=== PATIENT | male | born 1945 | race Caucasian/White ===

== ENCOUNTER 2016-09-10 07:43 | Emergency (ER) | payer BC, MEDICARE ==
[~2016-09-10] VITALS: Ht 208.3 cm; Wt 103.5 kg
[~2016-09-10 07:43] MED LIST: ADVA250A INH; ALBU17I INH; ALBU1AER INH; ASPI81TA82 PO; MAXZ25 PO; PRED50 PO; PROC90TA PO; SIMV20 PO; ZITH250T PO
[2016-09-10 07:51] VITALS: BP 150/84; PULSE 100; RESP 16; TEMP 98.1; O2SAT 94
[2016-09-10] MEDS ORDERED: ALBUAER3 INH (08:01)
[2016-09-10] MEDS ORDERED: ASPI81CH7 CHEW (08:01)
[2016-09-10] MEDS ORDERED: ADVA250A INH (08:01)
[2016-09-10] MEDS ORDERED: SIMV20TA PO (08:01)
[2016-09-10] MEDS ORDERED: LISI10TA3 PO (08:01)
[2016-09-10] MEDS ORDERED: NIFE1TAB PO (08:01)
[2016-09-10] MEDS ORDERED: HYDR25TA5 PO (08:01)
[2016-09-10 08:02] VITALS: RESP 16
[2016-09-10] MEDS ORDERED: KETOROLAC TROMETHAMINE 60 MG/2 ML (IM) VIAL IM ONE (08:30)
--- NOTE | 2016-09-10 08:50 | PD ---
HPI Chief Complaint: Back/ Neck Pain or Injury Time Seen by Provider: 08:13 Travel History International Travel<30 days: No Contact w/Intl Traveler<30days: No Traveled to known affect area: No History of Present Illness HPI 70-year-old male presents with left-sided back pain that is been present for the past couple weeks after he lifted multiple bags of groceries and twisted the wrong way. He states he has been using heating pad and anti-inflammatories and was doing better but it started to bother him again yesterday. He states this was after he started playing golf. He states that he is not having any incontinence, weakness, numbness, urinary symptoms, abdominal pain or other concurrent complaints. He denies taking blood thinner medications. Quality pain is sharp. Severity is moderate. Pain is worse with movement. He denies other modifying factors. PFSH Past Medical History Hx Anticoagulant Therapy: Yes (BABY ASA DAILY) Cardiovascular Problems: Yes (CHOL, HTN) High Cholesterol: Yes COPD: Yes Diabetes: No Diminished Hearing: No Hypertension: Yes Tetanus Vaccination: Unknown Past Surgical History Abdominal Surgery: Yes (HERNIA REPAIR) Cholecystectomy: Yes Social History Alcohol Use: Yes (COUPLE OF BEERS A DAY) Tobacco Use: No Substance Use: No Allergies-Medications (Allergen,Severity, Reaction): Coded Allergies: No Known Allergies (Verified , 09/10/16) Reported Meds & Prescriptions Reported Meds & Active Scripts Active Skelaxin (Metaxalone) 800 Mg Tab 800 Mg PO HS PRN Reported Aspirin Children's (Aspirin) 81 Mg Chew 81 Mg CHEW DAILY Advair Diskus Inh (Fluticasone-Salmeterol Inh) 250-50 Mcg/Blist Aer 1 Puff INH BID Rinse mouth after use. Proair Hfa 8.5 GM Inh (Albuterol Sulfate) 90 Mcg/Act Aer 1 Puff INH Q4H PRN 108 mcg/actuation Hydrochlorothiazide 25 Mg Tab 25 Mg PO DAILY Simvastatin 20 Mg Tab 20 Mg PO DAILY Lisinopril 10 Mg Tab 10 Mg PO DAILY Nifedipine ER 24 HR (Nifedipine) 90 Mg Tab 90 Mg PO DAILY Review of Systems Except as stated in HPI: all other systems reviewed are Neg Physical Exam Narrative GENERAL: Well-nourished, well-developed patient. SKIN: Warm and dry. HEAD: Normocephalic and atraumatic. EYES: No injection or drainage. ENT: No nasal drainage noted. NECK: Supple, trachea midline. CARDIOVASCULAR: Regular rate and rhythm RESPIRATORY: Breath sounds equal bilaterally. No accessory muscle use. GASTROINTESTINAL: Abdomen soft, non-tender, nondistended. EXTREMITIES: No edema. BACK: Nontender without obvious deformity in midline, no CVA tenderness, tender to left lateral lower back in lumbar area. NEUROLOGICAL: Awake and alert. Motor and sensory grossly within normal limits. Normal speech. Data Data Last Documented VS Vital Signs Date Time Temp Pulse Resp B/P Pulse Ox O2 Delivery O2 Flow Rate FiO2 09/10/16 10:43 82 16 112/72 93 09/10/16 07:51 98.1 Orders Spine, Lumbar - Ltd (Ap & Lat) (09/10/16 ) Ketorolac Inj (Toradol Inj) (09/10/16 08:30) MDM Medical Decision Making Medical Screen Exam Complete: Yes Emergency Medical Condition: Yes Medical Record Reviewed: Yes (pmh confirmed) Interpretation(s) Lumbar x-ray without acute fracture Differential Diagnosis Disc disease, strain, doubt fracture Narrative Course Patient agrees to Limited x-ray with anti-inflammatory injection. He understands if he develops red flag symptoms which I reviewed with him that he needs to emergently return here and either way he needs to follow with his primary care physician for further nonemergent testing as an outpatient. Patient denies any new complaints and states that they are feeling better. Patient happy with care, all questions answered. Patient knows that follow up is incumbent on them and to return to the emergency room immediately if new or worsening symptoms develop. Patient given strict return precautions, vitals reviewed and are normal, agrees to further workup as an outpatient. Diagnosis Primary Impression: Back pain Qualified Code: M54.5 - Acute left-sided low back pain without sciatica Patient Instructions: General Instructions Additional Instructions: return as needed, tylenol as needed, follow with primary tuesday Med/Other Pt SpecificInfo: Prescription(s) given Scripts Metaxalone (Skelaxin)800 Mg [id number] Mg PO HS PRN (PAIN SCALE 1 TO 10) #10 TAB Prov:Maggi Garcia MD 09/10/16 Disposition: 01 DISCHARGE HOME Condition: Stable Maggi Garcia MD Sep 10, 2016 08:50
--- NOTE | 2016-09-10 10:29 | RADHPO ---
EXAM DATE/TIME: 09/10/2016 09:49 [facility] COMPARISON: No previous studies available for comparison. INDICATIONS: Left lower back pain after twisting wrong. MEDICAL HISTORY: Hypertension. Hypercholesterolemia. Chronic obstructive pulmonary disease. SURGICAL HISTORY: Cholecystectomy. Hernia repair. ENCOUNTER: Initial ACUITY: 3 weeks PAIN SCORE: 9/10 LOCATION: Left lumbar spine FINDINGS: There is loss of disc space height at L4-5 and L5-S1 with moderate degenerative changes in the facets . There is good preservation of vertebral body heights. CONCLUSION: 1. Degenerative changes as described above. 2. Negative for an acute compression. Diallo Douglas MD FACR on September 10, 2016 at 10:13 Board Certified Radiologist. This report was verified electronically.
[2016-09-10] MEDS ORDERED: META800T81 PO ×2 (10:38→10:58)
[2016-09-10 10:43] VITALS: BP 112/72
== END 2016-09-10 11:09 | disposition home or self-care (01) ==
LOC: PHED 07:43
DX: M54.5 Low back pain (principal)
CPT/HCPCS: 72100; 96372; 99283; J1885

== ENCOUNTER 2017-05-01 10:41 | Emergency (ER) | payer MEDICARE ==
[~2017-05-01] VITALS: Ht 182.9 cm; Wt 97.2 kg
[~2017-05-01 10:41] MED LIST changes: -ALBU17I INH; -ALBU1AER INH; +ALBUAER3 INH; +ASPI81CH7 CHEW; -ASPI81TA82 PO; +HYDR25TA5 PO; +LISI10TA3 PO; -MAXZ25 PO; +META800T81 PO; +NIFE1TAB PO; -PRED50 PO; -PROC90TA PO; -SIMV20 PO; +SIMV20TA PO; -ZITH250T PO
[2017-05-01 10:54] VITALS: BP 138/69; PULSE 95; RESP 16; TEMP 98.3; O2SAT 96
[2017-05-01] MEDS ORDERED: ALBU0.08 NEB (11:10)
[2017-05-01] MEDS ORDERED: ALLO100T PO (11:10)
[2017-05-01] MEDS ORDERED: METF500T PO (11:10)
[2017-05-01] MEDS ORDERED: INDO50CA PO (11:10)
--- NOTE | 2017-05-01 11:36 | PD ---
HPI Chief Complaint: Lump, Cyst, Hernia Time Seen by Provider: 11:32 Travel History International Travel<30 days: No Contact w/Intl Traveler<30days: No Traveled to known affect area: No History of Present Illness HPI Patient presents with concerns of right testicular discomfort which is gotten worse since Tuesday. States he has a inguinal hernia. States he plays golf 3 times a week and normally does not give him any problems however on Tuesday he started to experience pain primarily later in the afternoon after ambulating throughout the day. Denies any change in urination or bowel. Denies any chest pain shortness of breath. Denies any nausea vomiting diarrhea or fever. PFSH Past Medical History Hx Anticoagulant Therapy: Yes (BABY ASA DAILY) Cardiovascular Problems: Yes (CHOL, HTN) High Cholesterol: Yes COPD: Yes Diabetes: Yes Patient Takes Glucophage: Yes Diminished Hearing: No Hypertension: Yes Medical other: Yes (GOUT, HERNIA) Triglycerides - High: Yes Tetanus Vaccination: > 5 Years Influenza Vaccination: Yes ?: Not Past Surgical History Abdominal Surgery: Yes (HERNIA REPAIR) Cholecystectomy: Yes Social History Alcohol Use: Yes (3-4 BEER) Tobacco Use: No Substance Use: No Allergies-Medications (Allergen,Severity, Reaction): Coded Allergies: No Known Allergies (Verified , 05/01/17) Reported Meds & Prescriptions Reported Meds & Active Scripts Active Reported Albuterol Neb (Albuterol Sulfate) 2.5 Mg/3 Ml Neb 2.5 Mg NEB Q4HR NEB While awake Indomethacin 50 Mg Cap 50 Mg PO TID Take with food, milk, or antacids to decrease stomach adverse effects. Allopurinol 100 Mg Tab 100 Mg PO DAILY Metformin (Metformin HCl) 500 Mg Tab 500 Mg PO BIDPC Aspirin Children's (Aspirin) 81 Mg Chew 81 Mg CHEW DAILY Advair Diskus Inh (Fluticasone-Salmeterol Inh) 250-50 Mcg/Blist Aer 1 Puff INH BID Rinse mouth after use. Proair Hfa 8.5 GM Inh (Albuterol Sulfate) 90 Mcg/Act Aer 1 Puff INH Q4H PRN 108 mcg/actuation Hydrochlorothiazide 25 Mg Tab 25 Mg PO DAILY Simvastatin 20 Mg Tab 20 Mg PO DAILY Lisinopril 10 Mg Tab 10 Mg PO DAILY Nifedipine ER 24 HR (Nifedipine) 90 Mg Tab 90 Mg PO DAILY Review of Systems General / Constitutional: No: Fever Eyes: No: Visual changes HENT: No: Headaches Cardiovascular: No: Chest Pain or Discomfort Respiratory: No: Shortness of Breath Gastrointestinal: No: Abdominal Pain Genitourinary: Positive: Other (testicular discomfort), No: Dysuria Musculoskeletal: No: Pain Skin: No Rash Neurologic: No: Weakness Psychiatric: No: Depression Endocrine: No: Polydipsia Hematologic/Lymphatic: No: Easy Bruising Physical Exam Narrative GENERAL: Well-nourished, well-developed patient. SKIN: Focused skin assessment warm/dry. HEAD: Normocephalic. EYES: No scleral icterus. No injection or drainage. NECK: Supple, trachea midline. No JVD or lymphadenopathy. CARDIOVASCULAR: Regular rate and rhythm without murmurs, gallops, or rubs. RESPIRATORY: Breath sounds equal bilaterally. No accessory muscle use. GASTROINTESTINAL: Abdomen soft, non-tender, nondistended. MUSCULOSKELETAL: No cyanosis, or edema. BACK: Nontender without obvious deformity. No CVA tenderness. Testicular exam: I really don't appreciate any significant inguinal hernias there does appear to be a significant hydrocele/varicocele about the right testicle measuring 10-12 centimeters in total. Is not erythematous or warm to touch Data Data Last Documented VS Vital Signs Date Time Temp Pulse Resp B/P (MAP) Pulse Ox O2 Delivery O2 Flow Rate FiO2 05/01/17 13:18 80 18 127/72 (90) 93 Room Air 05/01/17 10:54 98.3 Orders Orders Urinalysis - C+S If Indicated (05/01/17 11:14) Us Testicles W Doppler (05/01/17 ) Urine Culture (05/01/17 11:25) Labs Laboratory Tests Test 05/01/17 11:25 Urine Collection Type CLEAN CATCH Urine Color YELLOW Urine Turbidity SLIGHT Urine pH 6.0 Urine Specific [place] 1.022 Urine Protein NEG mg/dL Urine Glucose (UA) NEG mg/dL Urine Ketones TRACE mg/dL Urine Occult Blood NEG Urine Nitrite NEG Urine Bilirubin NEG Urine Leukocyte Esterase SMALL Urine WBC 9-14 /hpf Urine Squamous Epithelial Cells 0-5 /hpf Urine Amorphous Sediment FEW Urine Bacteria FEW /hpf Microscopic Urinalysis Comment CULTURE INDICATED Urine Collection Time 1125 MDM Medical Decision Making Medical Screen Exam Complete: Yes Emergency Medical Condition: Yes Differential Diagnosis Testicular torsion, varicocele, cystocele, testicular cancer Narrative Course Assessment and plan discussed with patient and at bedside. Testicular ultrasound reveals 1. There is blood flow to both testicles. 2. 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 3. Moderate right hydrocele. 4. Small left hydrocele 5. Left varicocele 6. Left epididymal cyst measuring 2.0 cm. Diagnosis Primary Impression: Testicular discomfort Additional Impressions: Hydrocele of testis Varicocele Epididymal cyst Patient Instructions: General Instructions Additional Instructions: Encouraged testicular support, follow-up with PCP for urology referral, consider ice daily at bedtime. Tylenol or Motrin for pain. Med/Other Pt SpecificInfo: No Meds Exist/No RX given Disposition: 01 DISCHARGE HOME Condition: Good Deandre Murphy MD May 01, 2017 11:36
[2017-05-01 11:39] LABS: BLOOD, URINE NEG (NEG); GLUCOSE,URINE NEG (NEG); KETONE, URINE TRACE mg/dL (NEG); NITRITE,URINE NEG (NEG)
[2017-05-01 11:52] LABS: METHOD OF COLLECTION CLEAN CATCH; URINE COLOR YELLOW (YELLW/STRAW)
[2017-05-01 11:53] LABS: BACTERIA, URINE FEW /hpf; COMMENT (UR) CULTURE INDICATED; CULTURE IF INDICATED CULTURE INDICATED; SQUAMOUS EPITHELIAL CELL URINE 0-5 /hpf (0-5)
[2017-05-01 11:54] LABS: COMMENT2 (UR) MUCOUS PRESENT
--- NOTE | 2017-05-01 13:04 | RADRPT ---
EXAM DATE/TIME: 05/01/2017 12:17 [facility] COMPARISON: No previous studies available for comparison. INDICATIONS : Testicle swelling and pain. MEDICAL HISTORY : Hypercholesterolemia. Hypertension. COPD. SURGICAL HISTORY : Cholecystectomy. Hernia repair. ENCOUNTER: Initial ACUITY: 4 - 6 days PAIN SCORE: 4/10 LOCATION: Bilateral testicles. MEASUREMENTS: RIGHT TESTICLE: 5.7 x 2.2 x 4.6cm LEFT TESTICLE: 4.1 x 2.8 x 4.4cm FINDINGS: RIGHT TESTICLE: Homogeneous echotexture without intra or extratesticular mass. Blood flow is symmetric and within no rmal limits. No varicocele. Epididymis is within normal limits. Moderate right-sided hydrocele. LEFT TESTICLE: Homogeneous echotexture. There is a focal complex cystic area within the left testicle measuring 1.6 x 1.1 cm. This is probably a rete testis. Blood flow is symmetric and within normal limits. Small h ydrocele.. There is a well-defined cyst posterior to the left testicle measuring 2.0 x 1.9 cm. This i s a cyst associated with the epididymis.. There appears to be a left varicocele. SCROTUM: Within normal limits. CONCLUSION: 1. There is blood flow to both testicles. 2. 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 3. Moderate right hydrocele. 4. Small left hydrocele 5. Left varicocele 6. Left epididymal cyst measuring 2.0 cm. Jose Scanlon MD on May 01, 2017 at 12:58 Board Certified Radiologist. This report was verified electronically.
[2017-05-01 13:18] VITALS: BP 127/72; PULSE 80; RESP 18; O2SAT 93
== END 2017-05-01 14:18 | disposition home or self-care (01) ==
LOC: PHED 10:41
DX: N43.2 Other hydrocele (principal); N50.819 Testicular pain, unspecified; K40.90 Unilateral inguinal hernia, without obstruction or gangrene, not specified as recurrent; E78.5 Hyperlipidemia, unspecified; J44.9 Chronic obstructive pulmonary disease, unspecified; E11.9 Type 2 diabetes mellitus without complications; I10 Essential (primary) hypertension; Z79.82 Long term (current) use of aspirin
CPT/HCPCS: 76870; 81001; 87086; 93975; 99284